=== PATIENT | female | born 1955 | race Caucasian/White ===

== ENCOUNTER 2020-12-06 16:25 | Emergency (ER) | payer MEDICAID ==
--- NOTE | 2020-12-06 16:56 | EDM.PDOC ---
ED HPI GENERAL MEDICAL PROBLEM - General Chief Complaint: Head Injury Stated Complaint: FALL, POSSIBLE BROKEN NOSE Time Seen by Provider: 12/06/20 16:26 Source of Information: Reports: Patient History Limitations: Reports: No Limitations - History of Present Illness INITIAL COMMENTS - FREE TEXT/NARRATIVE: 65-year-old female no relevant past medical history not on any blood thinners presents status post fall. Patient tripped and fell hitting her frontal face and nose. She notes swelling and hematoma to the forehead as well as swelling, bruising, deformity of the nose. Patient denies LOC, ambulatory at the scene, denies other injuries, no neck pain. No nausea or vomiting. Nose Pain Score (Numeric/FACES): 8 - Related Data Allergies Allergy/AdvReac Type Severity Reaction Status Date / Time acetaminophen [From Vicodin] Allergy Hives Verified 12/06/20 17:51 hydrocodone [From Vicodin] Allergy Hives Verified 12/06/20 17:51 promethazine [From Phenergan] Allergy Hallucinati Verified 12/06/20 17:51 ons Home Meds: Home Meds . [Unable to Verify Home Med List] 12/06/20 [History] ED ROS GENERAL - Review of Systems Review Of Systems: Comprehensive ROS is negative, except as noted in HPI. ED EXAM, HEAD INJURY - Physical Exam Exam: See Below Exam Limited By: No Limitations General Appearance: Alert, WD/WN, No Apparent Distress Head: Other (large hematoma R frontal forehead, ecchymosis and deformity w/ TTP of nose) Nexus Criteria: No: Posterior, Midline Cervical Tenderness, Evidence of Intoxication, Altered Level of Consciousness, Focal Neurological Deficit, Painful Distraction Injuries Eyes: Bilateral Eye: EOMI, PERRL Ears: Normal External Exam Nose: Other (see above) Throat/Mouth: Normal Voice, No Airway Compromise Neck: Non-Tender, Normal Alignment, Normal Inspection Respiratory: No Respiratory Distress, Lungs Clear, Normal Breath Sounds, No Accessory Muscle Use Cardiovascular: Normal Peripheral Pulses, Regular Rate, Rhythm Back Exam: Normal Inspection Extremities: Normal Inspection Neurologic: supply requirements officer II-XII nml As Tested, No Motor/Sensory Deficits, Alert, Normal Mood/Affect, Oriented x 3 Course - Vital Signs Last Recorded V/S: Last Vital Signs Temp 97.6 F 12/06/20 16:59 Pulse 70 12/06/20 16:59 Resp 16 12/06/20 16:59 BP 106/50 L 12/06/20 16:59 Pulse Ox 98 12/06/20 16:59 - Orders/Labs/Meds Orders: Active Orders 24 hr Category Date Time Status Max Facial Sinus wo Cont [CT] Stat Exams 12/06/20 16:51 Taken Meds: Medications Discontinued Medications Generic Name Dose Route Start Last Admin Trade Name Freq PRN Reason Stop Dose Admin Oxycodone/Acetaminophen 1 tab 12/06/20 17:40 12/06/20 17:51 Acetaminophen/Oxycodone 325-10 Mg Tab PO 12/06/20 17:41 1 tab ONETIME ONE Administration - Re-Assessments/Exams Free Text/Narrative Re-Assessment/Exam: 12/06/20 16:[address] imaging of the head and max face. 12/06/20 18:[address] scan. No intracranial pathology. Will refer to ENT for further work-up and management. Departure - Departure Time of Disposition: 18:36 Disposition: Home, Self-Care 01 Condition: Good Clinical Impression: Closed head injury Qualifiers: Encounter type: initial encounter Qualified Code(s): S09.90XA - Unspecified injury of head, initial encounter - Discharge Information Instructions: Head Injury, Adult, [id number] Referrals: PCP,Not In Area [Primary Care Provider] - Forms: ED Department Discharge Additional Instructions: You can follow-up with the ENT regarding the nasal deviation. There are no other abnormalities under CT imaging. Dr. Brooks Chua [facility], [address] [place] [id number] Michael Treviño [facility] [address] [place] [id number] The following information is given to patients seen in the emergency department who are being discharged to home. This information is to outline your options for follow-up care. We provide all patients seen in our emergency department with a follow-up referral. The need for follow-up, as well as the timing and circumstances, are variable depending upon the specifics of your emergency department visit. If you don't have a primary care physician on staff, we will provide you with a referral. We always advise you to contact your personal physician following an emergency department visit to inform them of the circumstance of the visit and for follow-up with them and/or the need for any referrals to a consulting specialist. The emergency department will also refer you to a specialist when appropriate. This referral assures that you have the opportunity for follow-up care with a specialist. All of these measure are taken in an effort to provide you with optimal care, which includes your follow-up. Under all circumstances we always encourage you to contact your private physician who remains a resource for coordinating your care. When calling for follow-up care, please make the office aware that this follow-up is from your recent emergency room visit. If for any reason you are refused follow-up, please contact the [facility] Emergency Department at and asked to speak to the emergency department charge nurse. Please follow up with your primary care physician. If you do not have a primary care physician, see below: [facility] [address] [place] [address] [phone] [facility] [address] [place] [id number] [facility] [address] [place] [id number] Sepsis Event Note (ED) - Focused Exam Vital Signs: Vital Signs Temp Pulse Resp BP Pulse Ox 12/06/20 16:59 97.6 F 70 16 106/50 L 98 - My Orders Last 24 Hours: My Active Orders 12/06/20 16:51 Max Facial Sinus wo Cont [CT] Stat - Assessment/Plan Last 24 Hours: My Active Orders 12/06/20 16:51 Max Facial Sinus wo Cont [CT] Stat
[2020-12-06] MEDS ORDERED: Acetaminophen/oxyCODONE 325-10 MG Tab PO ONE (17:40)
--- NOTE | 2020-12-06 18:34 | CT ---
Indication: Fall Technique: Noncontrast head CT Comparison: No comparison Findings: Right frontal small soft tissue hematoma. Axial noncontrast images through the brain parenchyma demonstrates no acute intracranial hemorrhage or mass. No abnormal extra-axial air or fluid collections. Paranasal sinuses mastoid air cells skull and scalp appear unremarkable. Impression: No acute intracranial hemorrhage or mass. Small right frontal soft tissue hematoma. Please note that all CT scans at this facility use dose modulation, iterative reconstruction, and/or weight-based dosing when appropriate to reduce radiation dose to as low as reasonably achievable. Dictated by Beatriz Kebede MD @ 12/06/2020 6:31:[address] Beatriz Kebede @ Dec 06 2020 6:31PM
--- NOTE | 2020-12-06 18:36 | CT ---
Indication: Fall Technique: Facial bone CT scan Comparison: No comparison Findings: Nasal septum deviates towards the right. Small bony spur. Ostiomeatal complexes are patent. Mild mucosal thickening of the left maxillary sinus. Orbital globe appear intact. No facial bone fracture visualized. Impression: No facial bone fracture. Please note that all CT scans at this facility use dose modulation, iterative reconstruction, and/or weight-based dosing when appropriate to reduce radiation dose to as low as reasonably achievable. Dictated by Beatriz Kebede MD @ 12/06/2020 6:35:[address] Beatriz Kebede @ Dec 06 2020 6:35PM
== END 2020-12-06 18:54 | disposition home or self-care (01) ==
LOC: MW.ED 16:25
DX: S09.90XA Unspecified injury of head, initial encounter (principal); S00.83XA Contusion of other part of head, initial encounter; Z88.5 Allergy status to narcotic agent; Z88.8 Allergy status to other drugs, medicaments and biological substances; W01.198A Fall on same level from slipping, tripping and stumbling with subsequent striking against other object, initial encounter
CPT/HCPCS: 70450; 70486; 99283; A9270

== ENCOUNTER 2021-08-11 18:37 | Emergency (ER) | payer MEDICAID ==
[2021-08-11] MEDS ORDERED: fentaNYL 100 MCG/2 ML SDV ONE ×2 (18:47→19:19)
[2021-08-11] MEDS ORDERED: Sodium Chloride 0.9% 1,000 ML IV ONE (18:52)
[2021-08-11] MEDS ORDERED: fentaNYL 100 MCG/2 ML SDV IVPUSH STA (18:59)
[2021-08-11] MEDS ORDERED: Etomidate 2 MG/ML 20 ML SDV IVPUSH ONE (19:00)
[2021-08-11] MEDS ORDERED: propofoL 100 ML ONE (19:05)
[2021-08-11] MEDS ORDERED: propofoL 100 ML IV SCH (19:10)
[2021-08-11] MEDS ORDERED: Magnesium Sulfate/Water 50 ML ONE (19:18)
[2021-08-11 19:21] LABS: ACETAMINOPHEN <2.0 ug/mL; BLOOD UREA NITROGEN,BUN 18 mg/dL (7.0-18.0); CARBON DIOXIDE,CO2 23.1 mmol/L (21.0-32.0); CHLORIDE,CL 107 mmol/L (98-107); GLUCOSE RANDOM 87 mg/dL (74-106); POTASSIUM,K 3.1 mmol/L (3.5-5.1); SODIUM,NA 141 mmol/L (136-145)
[2021-08-11] MEDS ORDERED: fentaNYL 50 MCG/ML SDV IVPUSH STA (19:21)
[2021-08-11 19:44] LABS: CORONAVIRUS COVID-19 NAA NEGATIVE (NEGATIVE); INFLUENZA A NAA NEGATIVE (NEGATIVE); INFLUENZA B NAA NEGATIVE (NEGATIVE)
[2021-08-11] MEDS ORDERED: Magnesium Sulfate/Water 2 GM in Premix Bag 1 BAG IV ONE (20:36)
== END 2021-08-11 20:50 ==
LOC: MW.ED 18:37
DX: S06.360A Traumatic hemorrhage of cerebrum, unspecified, without loss of consciousness, initial encounter (principal); G93.40 Encephalopathy, unspecified; I16.0 Hypertensive urgency; J96.90 Respiratory failure, unspecified, unspecified whether with hypoxia or hypercapnia; Z88.5 Allergy status to narcotic agent; Z88.8 Allergy status to other drugs, medicaments and biological substances; Z20.822 Contact with and (suspected) exposure to COVID-19
CPT/HCPCS: 0240U; 31500; 36415; 36600; 43752; 51702; 70450; 71045; 80053; 80143; 80179; 80305; 80307; 81001; 82140; 82550; 82803; 83605; 83735; 84484; 84703; 85025; 85610; 93005; 96365; 96375; 99285; J0330; J1953; J2704; J3010; J3475; J3490; J7030